=== PATIENT | female | born 1940 | race Two or more races ===

== ENCOUNTER 2024-05-30 15:49 | Inpatient (IN) | payer OTHER ==
[~2024-05-30] VITALS: Ht 157.5 cm; Wt 43.1 kg
--- NOTE | 2024-05-30 16:00 | NUR ---
PTE ALERT Y ORIENTADA X3 REFIERE VENIR A BILL DEBIDO A QUE LA MISMA TIENE AMBOS PIERNAS INFLAMADAS, MUNSON Y SE OBSERVA POSIBLE CELULITIS EN PIERNA DERECHA. SE MIDEN S/V Y SE UBICA.
[2024-05-30] MEDS ORDERED: CEFTRIAXONE SODIUM 1,000 MG VIAL IV ONE (16:45)
[2024-05-30] MEDS ORDERED: FUROsemide 20 MG TABLET PO ONE (16:45)
[2024-05-30] MEDS ORDERED: CEFTRIAXONE SODIUM 1,000 MG VIAL ONE (17:07)
[2024-05-30] MEDS ORDERED: FUROsemide 20 MG/2 ML VIAL ONE (17:07)
--- NOTE | 2024-05-30 17:33 | NUR ---
SE EDUCA A PACIENTE SOBRE TRATAMIENTO MEDICO SOLICITADO POR MD EN TURNO, AL MOMENTO SE REALIZA ALEE DE MUESTRAS BAJO MEDIDAS ASEPTICAS Y ADMINISTRACION DE MEDICAMENTO SYLVAIN ORDEN MEDICA.
[2024-05-30 17:45] LABS: HEMATOCRIT 35.3 % (36.0-45.00); HEMOGLOBIN 11.8 g/dL (12.0-15.00); MEAN CELL VOLUME 88.3 fL (80.00-100.00); MEAN CORPUSCULAR HEMOGLOBIN 29.5 pg (27.00-32.0); MEAN CORPUSCULAR HGB CONC 33.4 g/dl (32.0-36.0); PLATELET COUNT 326 K/uL (150-450); RED CELL DISTRIBUTION WIDTH 14.1 % (11.5-14.5)
[2024-05-30 17:51] LABS: ERYTHROCYTE SEDIMENTATION RATE 7 mm/hr
[2024-05-30 18:15] LABS: ALBUMIN 3.1 gm/dL (3.4-5.0); BILIRUBIN TOTAL 0.71 mg/dL (0.3-1.2); CALCIUM 10.1 mg/dL (8.5-10.1); CREATININE SERUM 0.56 mg/dL (0.55-1.02); GFR 102.89; GLOBULINA 3.4 G/DL (2.4-3.5); POTASSIUM 3.88 mEq/L (3.5-5.1); TOTAL PROTEIN 6.5 gm/dL (6.4-8.2)
[2024-05-30 18:17] LABS: C-REACTIVE PROTEIN 2.32 MG/DL (0.00-0.29)
[2024-05-30] MEDS ORDERED: FUROsemide 20 MG/2 ML VIAL IV SCH (21:10)
[2024-05-30] MEDS ORDERED: ACETAMINOPHEN 500 MG GEL..CAP PO PRN (21:15)
[2024-05-31 02:00] VITALS: BP 153/74; O2SAT 98
[2024-05-31 03:21] LABS: PH,URINE 7.5 (5.0-8.0); URINE APPEARANCE Clear; URINE BILIRRUBIN Negative (NEGATIVE); URINE BLOOD NHT; URINE COLOR Yellow; URINE GLUCOSE Negative (NEGATIVE); URINE KETONE Negative (NEGATIVE); URINE LEUKOCYTE Trace; URINE NITRATE Negative; URINE PROTEIN Negative (NEGATIVE)
[2024-05-31 03:24] LABS: URINE BACTERIA 75.8 uL (0.0-1933); URINE EPITHELIAL CELLS 8.3 uL (0.0-38.8); URINE RBC 17.9 uL (0.0-20.8); URINE WBC 68.9 uL (0.0-23.2)
[2024-05-31 03:33] LABS: URINE CAST 0.29 uL (0.0-1.40)
[2024-05-31 03:36] LABS: D DIMER 0.57 MG/L; INR 0.95; PROTHROMBIN TIME 10.4 SECONDS (9.0-11.5)
[2024-05-31 04:04] LABS: COVID-19 AG NEGATIVE (NEGATIVE)
[2024-05-31 04:19] VITALS: BP 127/81; O2SAT 99
[2024-05-31] MEDS ORDERED: LEVOTHYROXINE SODIUM 50 MCG TABLET PO SCH (06:00)
[2024-05-31] MEDS ORDERED: LOSARTAN POTASSIUM 100 MG TABLET PO SCH (09:00)
[2024-05-31] MEDS ORDERED: ENOXAPARIN SODIUM 40 MG/0.4 ML SYRINGE SUBCUTANEO SCH (09:00)
[2024-05-31] MEDS ORDERED: CEFTRIAXONE SODIUM 2,000 MG in 0.9 % SODIUM CHLORIDE 100 ML IV SCH (09:00)
[2024-05-31] MEDS ORDERED: FAMOTIDINE/PF 20 MG in 0.9 % SODIUM CHLORIDE 8 ML IV PUSH SCH (09:00)
[2024-05-31 09:43] VITALS: BP 170/85; O2SAT 98
[2024-05-31 17:27] VITALS: BP 151/77; O2SAT 95
[2024-06-01 03:36] VITALS: BP 166/82; O2SAT 93
[2024-06-01] MEDS ORDERED: SODIUM CL 0.9% 100 ML IV.SOLN IV ONE (07:40)
[2024-06-01] MEDS ORDERED: HALOPERIDOL LACTATE 5 MG/ML AMPUL IV PRN (08:00)
[2024-06-01 09:03] VITALS: BP 150/77; O2SAT 99
[2024-06-01] MEDS ORDERED: MUPIROCIN 22 GM OINT..GM TUBE TOP SCH (13:00)
[2024-06-01] MEDS ORDERED: DOXYCYCLINE HYCLATE 100 MG CAPSULE PO SCH (13:00)
[2024-06-01 17:40] VITALS: BP 115/69; O2SAT 93
[2024-06-02 03:29] VITALS: BP 125/71; O2SAT 95
[2024-06-02 09:58] VITALS: BP 126/68; O2SAT 95
[2024-06-02 17:43] VITALS: BP 109/68
[2024-06-03 01:27] VITALS: BP 129/71; O2SAT 99
[2024-06-03 10:34] VITALS: BP 130/71; O2SAT 94
[2024-06-03 16:43] VITALS: BP 138/82; O2SAT 95
[2024-06-04 02:31] VITALS: BP 123/75; O2SAT 94
[2024-06-04] MEDS ORDERED: FAMOtidine 20 MG TABLET PO SCH (09:00)
[2024-06-04 09:50] VITALS: BP 125/56
[2024-06-04 17:38] VITALS: BP 134/85; O2SAT 97
[2024-06-05 01:07] VITALS: BP 134/87
[2024-06-05 09:09] VITALS: BP 181/70; O2SAT 94
[2024-06-05] MEDS ORDERED: AMLODIPINE BESYLATE 5 MG TABLET PO SCH (17:00)
[2024-06-05 17:41] VITALS: BP 137/75; O2SAT 95
[2024-06-06 01:07] VITALS: BP 139/79
[2024-06-06 07:40] VITALS: BP 153/92; O2SAT 97
[2024-06-06 07:57] LABS: HEMATOCRIT 36.7 % (36.0-45.00); HEMOGLOBIN 12.8 g/dL (12.0-15.00); MEAN CELL VOLUME 86.1 fL (80.00-100.00); MEAN CORPUSCULAR HGB CONC 34.9 g/dl (32.0-36.0); PLATELET COUNT 426 K/uL (150-450); RED BLOOD COUNT 4.27 M/uL (4.00-6.00); RED CELL DISTRIBUTION WIDTH 14.2 % (11.5-14.5)
[2024-06-06 08:31] LABS: CALCIUM 10.6 mg/dL (8.5-10.1); CREATININE SERUM 0.54 mg/dL (0.55-1.02); GFR 107.3; POTASSIUM 4.57 mEq/L (3.5-5.1)
[2024-06-06 17:09] VITALS: BP 122/73; O2SAT 94
[2024-06-07 00:26] VITALS: BP 100/64
[2024-06-07 08:18] VITALS: BP 148/71
== END 2024-06-07 19:00 | disposition home or self-care (01) | DRG 603 ==
LOC: ER 15:50 → MEDJ 21:23
PROVIDERS: General Practice; ADMIT Internal Medicine; ATTEND Internal Medicine
PROC: B24BYZZ Ultrasonography of Heart with Aorta using Other Contrast (ICD-10-PCS; principal; 2024-05-30)
PROC: B54DZZZ Ultrasonography of Bilateral Lower Extremity Veins (ICD-10-PCS; 2024-05-30)
DX: L03.115 Cellulitis of right lower limb (principal); I50.9 Heart failure, unspecified; E03.9 Hypothyroidism, unspecified; I10 Essential (primary) hypertension; I73.9 Peripheral vascular disease, unspecified

== ENCOUNTER 2024-08-21 20:26 | Inpatient (IN) | payer OTHER ==
[~2024-08-21] VITALS: Ht 157.5 cm; Wt 68.0 kg
[2024-08-21] MEDS ORDERED: ARBLI10 MG/1 ML (20:56)
[2024-08-21] MEDS ORDERED: LEVOXYL25 MCG (20:56)
[2024-08-21] MEDS ORDERED: PLAVIX75 MG (20:57)
[2024-08-21] MEDS ORDERED: LIPITOR40 M1 (20:57)
--- NOTE | 2024-08-21 20:57 | NUR ---
PTE ALERTA Y ORIENTADA X3 VERBALIZA QUE TIENE STANISLAV CELLULLITIS EN PIERNA DERECHA Y LE SUPURA AGUA Y TIENE MUCHO DOLOR SE LE JOHN S/V Y S EUBICA.
[2024-08-21] MEDS ORDERED: CEFTRIAXONE SODIUM 2,000 MG VIAL IV ONE (21:15)
[2024-08-21] MEDS ORDERED: 0.9 % SODIUM CHLORIDE 1,000 ML IV SCH ×2 (21:15→23:15)
--- NOTE | 2024-08-21 21:48 | NUR ---
SANTHOSH DURAN ORIENTA A PTE SOBRE [place] MEDICO Y LA MISMA REFIERE ENTENDER Y ACEPTAR. CANALIZA Y COELCTA MUESTRAS DE LAB. ADMINSTRA MED SYLVAIN ORDEN MEDICA,PTE NO PRESENTA REACCION.
[2024-08-21 22:24] LABS: BASO % 0.8 % (0.1-1.2); EOS # 0.34 (0.04-0.54); EOS % 3.7 % (0.7-7.0); LYMPH # 1.56 (1.18-3.74); LYMPH % 17.0 % (19.3-53.1); MEAN PLATELET VOLUME 9.60 fl (9.4-12.4); MONO # 0.79 (0.24-0.82); MONO % 8.6 % (4.7-12.5); NEUT # 6.39 (1.56-6.13); NEUT % 69.7 % (34.0-71.1); RED CELL DISTRIBUTION WIDTH 13.5 % (11.6-14.4)
[2024-08-21 22:29] LABS: ERYTHROCYTE SEDIMENTATION RATE 77 mm/hr (0-30)
[2024-08-21 22:49] LABS: ALT/SGPT 26.0 U/L (12-78); AST/SGOT 21.0 U/L (15-37); BILIRUBIN TOTAL 0.87 mg/dL (0.3-1.2); BUN CREA RATIO 37.0 (7.0-25.0); CREATININE SERUM 0.59 mg/dL (0.55-1.02); GFR 96.87; GLOBULINA 2.9 G/DL (2.4-3.5); GLUCOSE FASTING 91.0 mg/dL (65-100); OSMOLALITY SERUM 284.0 MOSM/KG (275-295)
[2024-08-21] MEDS ORDERED: levoFLOXacin IN DEXTROSE 5 % 150 ML IV SCH (23:07)
[2024-08-21] MEDS ORDERED: GABAPENTIN 300 MG CAPSULE PO SCH (23:07)
[2024-08-21] MEDS ORDERED: ACETAMINOPHEN 500 MG GEL..CAP PO PRN (23:15)
[2024-08-21] MEDS ORDERED: KETOROLAC TROMETHAMINE 15 MG VIAL IU ONE (23:15)
[2024-08-22 03:35] VITALS: BP 180/88; O2SAT 98
[2024-08-22] MEDS ORDERED: LEVOTHYROXINE SODIUM 75 MCG TABLET PO SCH (06:00)
[2024-08-22 09:00] VITALS: BP 164/78; O2SAT 95
[2024-08-22] MEDS ORDERED: LOSARTAN POTASSIUM 100 MG TABLET PO SCH (09:00)
[2024-08-22] MEDS ORDERED: ENOXAPARIN SODIUM 40 MG/0.4 ML SYRINGE SUBCUTANEO SCH (09:00)
[2024-08-22] MEDS ORDERED: FAMOTIDINE/PF 20 MG in 0.9 % SODIUM CHLORIDE 8 ML IV PUSH SCH (09:00)
[2024-08-22] MEDS ORDERED: ENALAPRILAT DIHYDRATE 1.25 MG/ML VIAL IV PRN (09:30)
[2024-08-22 09:37] LABS: URINE APPEARANCE Clear; URINE BILIRRUBIN Negative (NEGATIVE); URINE BLOOD Negative; URINE COLOR Yellow; URINE GLUCOSE Negative (NEGATIVE); URINE KETONE Negative (NEGATIVE); URINE LEUKOCYTE Negative; URINE NITRATE Negative; URINE PROTEIN Trace (NEGATIVE); URINE UROBILINOGEN 1.0 E.U./dl
[2024-08-22 09:41] LABS: URINE BACTERIA 10.7 uL (0.0-1933); URINE EPITHELIAL CELLS 26.4 uL (0.0-38.8); URINE RBC 25.2 uL (0.0-20.8); URINE WBC 8.9 uL (0.0-23.2)
[2024-08-22 09:47] LABS: URINE CAST 0.00 uL (0.0-1.40)
[2024-08-22] MEDS ORDERED: TRAMADOL HCL 50 MG TABLET PO PRN (12:00)
[2024-08-22 16:00] VITALS: BP 149/79; O2SAT 95
[2024-08-22] MEDS ORDERED: CLOTRIMAZOLE 15 GM TUBE TOP SCH (17:00)
[2024-08-22] MEDS ORDERED: AZTREONAM 1,000 MG VIAL IV SCH (17:00)
[2024-08-22] MEDS ORDERED: LACTOBACILLUS ACIDOPHILUS 1 CAP CAP PO SCH (17:00)
[2024-08-23 02:09] VITALS: BP 119/78; O2SAT 96
[2024-08-23] MEDS ORDERED: levoFLOXacin IN DEXTROSE 5 % 150 ML IV SCH (09:00)
[2024-08-23] MEDS ORDERED: CHLORHEXIDINE GLUCONATE 120 ML BOTTLE TOP SCH (09:00)
[2024-08-23 09:33] VITALS: BP 156/72; O2SAT 99
[2024-08-23 16:00] VITALS: BP 138/84; O2SAT 97
[2024-08-24 01:30] VITALS: BP 149/71; O2SAT 95
[2024-08-24 08:00] VITALS: BP 153/77; O2SAT 95
[2024-08-24 16:00] VITALS: BP 155/83; O2SAT 95
[2024-08-25] VITALS: BP 145/70; O2SAT 97
[2024-08-25 09:26] VITALS: BP 175/83; O2SAT 94
[2024-08-25 20:00] VITALS: BP 117/73; O2SAT 95
[2024-08-26 01:41] VITALS: BP 130/82; O2SAT 96
[2024-08-26 08:00] VITALS: BP 112/65; O2SAT 94
[2024-08-26 11:52] LABS: BASO % 0.6 % (0.1-1.2); EOS # 0.39 (0.04-0.54); EOS % 4.7 % (0.7-7.0); LYMPH # 1.37 (1.18-3.74); LYMPH % 16.6 % (19.3-53.1); MEAN PLATELET VOLUME 9.80 fl (9.4-12.4); MONO # 0.65 (0.24-0.82); MONO % 7.9 % (4.7-12.5); NEUT # 5.76 (1.56-6.13); NEUT % 69.8 % (34.0-71.1); RED CELL DISTRIBUTION WIDTH 13.4 % (11.6-14.4)
[2024-08-26 12:48] LABS: BUN CREA RATIO 57.0 (7.0-25.0); CREATININE SERUM 0.56 mg/dL (0.55-1.02); GFR 102.89; GLUCOSE FASTING 145.0 mg/dL (65-100); OSMOLALITY SERUM 291.0 MOSM/KG (275-295)
[2024-08-26 17:25] VITALS: BP 122/75; O2SAT 96
[2024-08-27 02:22] VITALS: BP 124/69; O2SAT 97
[2024-08-27 08:00] VITALS: BP 129/71; O2SAT 95
[2024-08-27 17:35] VITALS: BP 129/79; O2SAT 97
[2024-08-28 01:58] VITALS: BP 143/73; O2SAT 94
[2024-08-28 08:00] VITALS: BP 160/86; O2SAT 95
[2024-08-28 18:22] VITALS: BP 118/67; O2SAT 95
[2024-08-29 02:21] VITALS: BP 179/81; O2SAT 94
[2024-08-29 07:00] VITALS: BP 168/77; O2SAT 93
[2024-08-29 15:00] VITALS: BP 136/82; O2SAT 95
[2024-08-30 01:43] VITALS: BP 143/75; O2SAT 98
[2024-08-30 08:00] VITALS: BP 153/83; O2SAT 94
[2024-08-30 16:00] VITALS: BP 122/77; O2SAT 95
[2024-08-31 01:07] VITALS: BP 110/68; O2SAT 97
[2024-08-31 10:14] VITALS: BP 135/89; O2SAT 95
[2024-08-31 16:00] VITALS: BP 128/76; O2SAT 94
[2024-09-01 01:16] VITALS: BP 113/64; O2SAT 94
[2024-09-01 08:00] VITALS: BP 124/89; O2SAT 95
[2024-09-01] MEDS ORDERED: DICLOFENAC SODIUM 50 GM GEL..GRAM. TOP SCH (09:00)
[2024-09-01 16:00] VITALS: BP 145/80; O2SAT 95
[2024-09-02 01:23] VITALS: BP 163/71; O2SAT 96
[2024-09-02 08:56] VITALS: BP 146/72; O2SAT 95
[2024-09-02 16:00] VITALS: BP 146/69; O2SAT 95
== END 2024-09-02 21:00 | disposition home or self-care (01) | DRG 300 ==
LOC: ER 20:33 → SURG 23:09 → SURH 08-23 11:36
PROVIDERS: General Practice; ADMIT Student in an Organized Health Care Education/Training Program; ATTEND Student in an Organized Health Care Education/Training Program
PROC: B44HZZZ Ultrasonography of Bilateral Lower Extremity Arteries (ICD-10-PCS; principal; 2024-08-21)
PROC: B54DZZZ Ultrasonography of Bilateral Lower Extremity Veins (ICD-10-PCS; 2024-08-21)
PROC: 8E0ZXY6 Isolation (ICD-10-PCS; 2024-08-26)
DX: I83.019 Varicose veins of right lower extremity with ulcer of unspecified site (principal); L03.115 Cellulitis of right lower limb; L97.919 Non-pressure chronic ulcer of unspecified part of right lower leg with unspecified severity; L08.9 Local infection of the skin and subcutaneous tissue, unspecified; B96.4 Proteus (mirabilis) (morganii) as the cause of diseases classified elsewhere; B95.2 Enterococcus as the cause of diseases classified elsewhere; B96.89 Other specified bacterial agents as the cause of diseases classified elsewhere; I10 Essential (primary) hypertension; E03.9 Hypothyroidism, unspecified